=== PATIENT | female | born 1955 | race Caucasian/White ===

== ENCOUNTER → 2017-12-10 10:03 | Outpatient (CLI) | payer OTHER, SELFPAY ==
[2017-12-10 12:24] LABS: Absolute Lymphocyte Count 1.34 X10^3/ul (0.83-4.51); Absolute Neutrophil Count 3.1 X10^3/uL (2.0-7.7); Basophil# 0.03 X10^3/uL; Basophil% 0.6 % (0-1); Eosinophil# 0.12 X10^3/uL; Eosinophils% 2.4 % (0-5); Hematocrit 37.5 % (37-47); Lymphocyte # 1.34 X10^3/ul (4.0); Lymphocyte % 26.9 % (19-41); Mean Corpuscular Hgb 25.5 pg (27.0-32.0); Mean Corpuscular Volume 79.6 fL (81-99); Mean Platelet Vol. 9.6 fl (6.2-12.0); Monocyte# 0.44 X10^3/uL; Monocyte% 8.8 % (0-10); Neutrophil # 3.05 X10^3/uL (2.7-7.7); Neutrophil % 61.3 % (47-70); Platelet Count 342 K/mm3 (150-450); RBC Distribution Width CV 16.1 % (11.6-14.6); RBC Distribution Width SD 46.4 fl (35.1-43.9); Red Blood Count 4.71 M/mm3 (4.2-5.4)
[2017-12-10 12:38] LABS: POSITIVE COUNT NO; POSITIVE DIFFERENTIAL NO; POSITIVE MORPHOLOGY NO
[2017-12-10 12:44] LABS: AST(SGOT) 19 U/L (15-37); Alanine Aminotransfer ALT/SGPT 27 U/L (13-56); Albumin, Serum 3.6 g/dL (3.2-5.0); Alkaline Phosphatase 79 U/L (45-117); Anion Gap 8 (5-15); BUN 13 mg/dL (7-18); BUN/Creat Ratio 19.1 RATIO (10-20); Chloride 107 mmol/L (98-107); Cholesterol 165 mg/dL (200); Creatinine, Serum 0.68 mg/dL (0.55-1.02); EST Glomerular Filtration Rate 94 mL/min (>60); Est Glom Filt Rate - Afr Amer 113 mL/min (>60); Globulin 3.6 g/dL (2.2-4.2); Glucose 82 mg/dL (74-106); High Density Lipoprotein 57 mg/dL; Protein, Total 7.2 g/dL (6.4-8.2); Sodium Level 140 mmol/L (136-145); Thyroid Stim Hormone (TSH) 0.45 uIU/mL (0.358-3.74); Triglycerides 119 mg/dL; Very Low Density Lipoprotein 24 mg/dL (5-40)
[2017-12-11 09:45] LABS: Ferritin 4 ng/mL (8-252); Iron 31 ug/dL (50-170); Iron Binding Capacity,Total 422 ug/dL (250-450); PERCENT IRON SATURATION 7.3 % (15.0-55.0)
== END ==
PROVIDERS: Visit Provider Family Medicine
DX: K21.9 Gastro-esophageal reflux disease without esophagitis (principal); E03.9 Hypothyroidism, unspecified; R71.8 Other abnormality of red blood cells
CPT/HCPCS: 36415; 80053; 80061; 82728; 83540; 83550; 84439; 84443; 85025

== ENCOUNTER → 2018-02-11 11:10 | Outpatient (CLI) | payer OTHER, SELFPAY ==
--- NOTE | 2018-02-11 11:13 | BI_ITS ---
MAMMOGRAPHY - BILATERAL SCREENING 3-D LETA SYNTHESIS REASON FOR EXAM: Female, 63 years old. Bilateral Screening 3-D tomosynthesis PERTINENT HISTORY: Aunt with breast cancer.. TECHNIQUE: 2-D mammograms and 3-D Leta synthesis of the breast (s) were performed. CAD was performed. COMPARISON: None. FINDINGS: The breast composition is heterogeneously dense that can obscure small breast masses. Scattered benign calcifications are seen. No dense spiculated masses or suspicious microcalcifications are identified. No architectural distortion is identified. There is no skin thickening or retraction. There has been no significant change since the prior study. BI/SCREENING MAMM (CAD), BILAT IMPRESSION: No mammographic signs of malignancy. Routine yearly mammograms recommended. ASSESSMENT CATEGORY: BIRADS Category 2: Benign. A letter regarding these results will be sent to the patient by the facility within 30 days. FOLLOW UP RECOMMENDATION: Yearly follow up mammogram recommended. (A) Approximately 10% of breast cancers are not detected by mammography. A normal mammogram should not delay biopsy of a clinically suspicious abnormality. Electronically Signed: Ulises Schofield MD at 8:15 EDT , Service support ,
== END ==
PROVIDERS: Family Provider Family Medicine; PCP Family Medicine; Visit Provider Family Medicine
DX: Z12.31 Encounter for screening mammogram for malignant neoplasm of breast (principal)
CPT/HCPCS: 77062; 77063; 77067; G0279

== ENCOUNTER → 2018-03-29 11:30 | Outpatient (CLI) | payer OTHER, SELFPAY ==
[2018-03-29 14:27] LABS: Absolute Lymphocyte Count 1.41 X10^3/ul (0.83-4.51); Absolute Neutrophil Count 3.5 X10^3/uL (2.0-7.7); Basophil# 0.03 X10^3/uL; Basophil% 0.5 % (0-1); Eosinophil# 0.08 X10^3/uL; Eosinophils% 1.5 % (0-5); Hematocrit 42.4 % (37-47); Hemoglobin 13.6 g/dl (12.0-15.0); Lymphocyte # 1.41 X10^3/ul (4.0); Lymphocyte % 25.8 % (19-41); Mean Corp Hgb Conc 32.1 g/gl (32-36); Mean Corpuscular Hgb 26.6 pg (27.0-32.0); Mean Corpuscular Volume 82.8 fL (81-99); Mean Platelet Vol. 9.7 fl (6.2-12.0); Monocyte# 0.48 X10^3/uL; Monocyte% 8.8 % (0-10); Neutrophil # 3.46 X10^3/uL (2.7-7.7); Neutrophil % 63.2 % (47-70); Platelet Count 348 K/mm3 (150-450); RBC Distribution Width CV 16.7 % (11.6-14.6); RBC Distribution Width SD 50.7 fl (35.1-43.9); Red Blood Count 5.12 M/mm3 (4.2-5.4); White Blood Count 5.5 K/mm3 (4.4-11.0)
[2018-03-29 14:29] LABS: POSITIVE COUNT NO; POSITIVE DIFFERENTIAL NO; POSITIVE MORPHOLOGY NO
[2018-03-29 14:52] LABS: ALB/GLOB Ratio 1.1 RATIO (0.9-2.4); AST(SGOT) 23 U/L (15-37); Alanine Aminotransfer ALT/SGPT 35 U/L (13-56); Albumin, Serum 3.9 g/dL (3.2-5.0); Alkaline Phosphatase 80 U/L (45-117); Anion Gap 10 (5-15); BUN 11 mg/dL (7-18); Calcium,Total 9.2 mg/dL (8.5-10.1); Chloride 107 mmol/L (98-107); Creatinine, Serum 0.73 mg/dL (0.55-1.02); EST Glomerular Filtration Rate 86 mL/min (>60); Est Glom Filt Rate - Afr Amer 104 mL/min (>60); Ferritin 8 ng/mL (8-252); Globulin 3.6 g/dL (2.2-4.2); Glucose 92 mg/dL (74-106); Iron 77 ug/dL (50-170); Iron Binding Capacity,Total 405 ug/dL (250-450); Potassium 3.5 mmol/L (3.5-5.1); Protein, Total 7.5 g/dL (6.4-8.2); Sodium Level 143 mmol/L (136-145)
== END ==
PROVIDERS: Family Provider Family Medicine; PCP Family Medicine; Visit Provider Family Medicine
DX: E61.1 Iron deficiency (principal); E03.9 Hypothyroidism, unspecified
CPT/HCPCS: 36415; 80053; 82728; 83540; 83550; 84443; 85025

== ENCOUNTER → 2018-04-29 09:05 | Outpatient (CLI) | payer OTHER, SELFPAY ==
--- NOTE | 2018-04-29 09:23 | RAD_ITS ---
CLINICAL HISTORY: Female, 63 years old. Epigastric pain. Heartburn, left side. Thyroidectomy, benign mass. PROCEDURE: Air-contrast upper GI series. REASON FOR EXAM: Female, 63 years old. Epigastric pain. Heartburn, left side. Thyroidectomy, benign mass. TECHNIQUE: After the administration of gas producing crystals, water and barium solution orally, multiple images of the opacified gastrointestinal tract were obtained under fluoroscopic guidance. Additional right lateral cine imaging of the appearance and cervical esophagus was accomplished. FLUOROSCOPY TIME (if supplied): (165) seconds Dose: 68.7 mGy COMPARISON: None available. FINDINGS: After the administration of gas producing crystals, water, and barium solution orally, multiple images of the opacified gastrointestinal tract were obtained under fluoroscopic guidance. Examination of the esophagus shows normal motility but moderate dilatation is seen of the upper, mid and distal thoracic esophagus. Moderate narrowing of the GE junction seen with slightly hazy margins suggestive esophagitis in the appropriate clinical setting over a short length near the GE junction. No definite finding of hiatal hernia identified. Minimal gastroesophageal reflux noted during the study without provocation and slightly increased with provocation. Examination the stomach appears within normal without ulceration or mucosal thickening. Examination the duodenum shows mucosal thickening of the duodenal bulb. Incidental second portion duodenal diverticulum noted. Additional upright right lateral cine imaging pharynx and cervical esophagus shows no aspiration or laryngeal penetration with severe degenerative changes noted at C4-C5/C6/C7 including disc space narrowing and subchondral sclerosis and moderate anterior osteophytes. RAD/Upper GI Series Only IMPRESSION: Moderate narrowing GE junction noted with likely esophagitis. Clinical correlation recommended. Minimal GE reflux noted during the study without provocation and slightly increased with provocation. Duodenal fold mucosal thickening. Clinical correlation recommended. Severe degenerative C4-C5/C5-C6 as described with moderate anterior osteophytosis at each level. Electronically Signed: Ash Looney, at 14:47 EDT Tel , Service support ,
== END ==
PROVIDERS: Family Provider Family Medicine; PCP Family Medicine; Visit Provider Surgery
DX: R10.13 Epigastric pain (principal)
CPT/HCPCS: 74246

== ENCOUNTER 2018-05-17 09:26 | Day surgery (SDC) | payer OTHER, SELFPAY ==
[2018-05-17] VITALS (9 sets, daily range): BP systolic 80–119; BP diastolic 50–65; PULSE 67–85; RESP 16–18; TEMP 36.5–37.1; O2SAT 94–100; BMI 24.7
--- NOTE | 2018-05-17 | IMM_PTH ---
PATIENT: HUGO SAINI LOC: EN U#:[id number] AGE/SX: 63/F ROOM: RE05/17/[address]: Dr. Ash Franks MD : 1955 BED: DIS: 05/17/2018 SPEC #: [id number] RECD: 05/20/18 13:14 STATUS: GURJIT REQ #: [id number] SHORTY: 05/17/18 00:[address]: Ash Franks DEPT: IMMUNOHISTOCHEMISTRY RECD BY: Fely Plata ENTERED: 05/20/18 13:14 SP TYPE: IMMUNO OTHR DR: Dr. Girsih Vincent MD Tissues: B - Stomach, NOS Procedures: H Pylori (initial) PHYSICIAN & INSTITUTION [place] [address] SPECIMEN INFORMATION: Tissue Source: B - Antral biopsy Clinical Info: GERD Specimen Number: [id number] CPT code: 88894 METHODOLOGY: Deparaffinized sections of prefer/formalin-fixed tissue or PAP/DQ stained slides are incubated with monoclonal/polyclonal antibodies/oligonucleotide probes. Localization is made via biotin free immunoperoxidase method. Appropriate controls are performed and reacted as expected. Results on target cell population are indicated in the following table: RESULTS: ANTIBODY / CLONE RESULT Block B H Pylori (polyclonal) positive These tests were developed and their performance characteristics determined by [facility]. They may not have been cleared or approved by the U.S. Food and Drug Administration. The FDA has determined that such clearance or approval is not necessary. INTERPRETATION: B. Antral biopsy: Positive for Helicobacter pylori organisms. SJ:hugh 05/20/18
--- NOTE | 2018-05-17 | EGD_PTH ---
PATIENT: HUGO SAINI LOC: EN U#:[id number] AGE/SX: 63/F ROOM: RE05/17/[address]: Dr. Ash Franks MD : 1955 BED: DIS: 05/17/2018 SPEC #: [id number] RECD: 05/17/18 14:31 STATUS: GURJIT REThomas #: [id number] SHORTY: 05/17/18 00:[address]: Ash Franks DEPT: SURGICAL PATHOLOGY RECD BY: Emerson Hoffman ENTERED: 05/17/18 14:32 SP TYPE: EGD BIOPSY OTHR DR: Dr. Girish Vincent MD Tissues: A - Duodenum, NOS B - Gastric mucous membrane C - Esophageal mucous membrane Procedures: Special Stain Group II Surgery Specimen Level IV Alcian Blue/PAS (control) HEADER OPERATION: EGD - PH probe ([facility]) PRE-OP DIAGNOSIS: Gastroesophageal reflux disease TISSUE SUBMITTED: A - Duodenal biopsy, B - Antral biopsy, C - Distal esophageal biopsy MICROSCOPIC DIAGNOSIS A. Duodenal biopsy: A fragment of duodenal mucosa, no pathologic diagnosis. B. Antral biopsy: Chronic active gastritis. C. Distal esophageal biopsy: Fragments of gastroesophageal mucosa with mild acute and chronic inflammation. Intestinal metaplasia (goblet cell metaplasia) is not identified. SJ:rg 05/20/18 COMMENT B. The results of immunohistochemistry for Helicobacter pylori will be reported separately ([id number]). C. Alcian blue/PAS stain with matched control is used in the evaluation of the specimen. MICROSCOPIC DESCRIPTION Slides are reviewed. GROSS DESCRIPTION A - Received in fixative is one container labeled with the patient's name and designated duodenal biopsy. The specimen consists of one irregular fragment of light subramanian soft tissue that measures 0.4 x 0.3 x 0.1 cm. The specimen is totally submitted in one cassette. B - Received in fixative is one container labeled with the patient's name and designated antral biopsy. The specimen consists of one irregular fragment of light subramanian soft tissue that measures 0.3 x 0.3 x 0.1 cm. The specimen is totally submitted in one cassette. C - Received in fixative is one container labeled with the patient's name and designated distal esophageal biopsy. The specimen consists of multiple irregular fragments of light subramanian soft tissue that in aggregate measure 0.8 x 0.8 x 0.1 cm. The specimen is totally submitted in one cassette. / SJ:rg 05/17/18 TC:2 CPT: 00722 x3, 28581
--- NOTE | 2018-05-17 10:58 | OP.ENDO_ITS ---
Patient Name: Alayna Melendez Procedure Date: 05/17/2018 10:32 AM Date of : 1955 Age: 63 Procedure: Upper GI endoscopy Indications: Suspected gastro-esophageal reflux disease Providers: Ash Franks MD Referring MD: Ash Franks MD Medicines: See the Anesthesia note for documentation of the administered medications Complications: No immediate complications. Procedure: Pre-Anesthesia Assessment: - Prior to the procedure, a History and Physical was performed, and patient medications and allergies were reviewed. The patient's tolerance of previous anesthesia was also reviewed. The risks and benefits of the procedure and the sedation options and risks were discussed with the patient. All questions were answered, and informed consent was obtained. Prior Anticoagulants: The patient has taken no previous anticoagulant or antiplatelet agents. ASA Grade Assessment: II - A patient with mild systemic disease. After reviewing the risks and benefits, the patient was deemed in satisfactory condition to undergo the procedure. After obtaining informed consent, the endoscope was passed under direct vision. Throughout the procedure, the patient's blood pressure, pulse, and oxygen saturations were monitored continuously. The gastroscope was introduced through the mouth, and advanced to the second part of duodenum. The upper GI endoscopy was accomplished without difficulty. The patient tolerated the procedure well. Scope In: 10:42:45 AM Scope Out: 10:52:09 AM Total Procedure Duration Time 0 hours 9 minutes 24 seconds Findings: Esophagitis with no bleeding was found 42 cm from the incisors. A small hiatal hernia was present. Biopsies were taken with a cold forceps for histology. Diffuse mildly erythematous mucosa without bleeding was found in the gastric antrum. Biopsies were taken with a cold forceps for histology. The examined duodenum was normal. Biopsies were taken with a cold forceps for histology. The Z-line was irregular and was found 42 cm from the incisors. The GOLDBERG capsule with delivery system was introduced through the mouth and advanced into the esophagus, such that the GOLDBERG pH capsule was positioned 36 cm from the incisors, which was 6 cm proximal to the GE junction. The GOLDBERG pH capsule was then deployed and attached to the esophageal mucosa. The delivery system was then withdrawn. Endoscopy was utilized for probe placement and diagnostic evaluation. Impression: - Reflux esophagitis. Possible Wolf's - Small hiatal hernia. Biopsied. - Erythematous mucosa in the antrum. Biopsied. - Normal examined duodenum. Biopsied. - Z-line irregular, 42 cm from the incisors. - The GOLDBERG pH capsule was deployed. Recommendation: - Discharge patient to home. - Resume previous diet. - Continue present medications. - Return to my office in 1 week. Procedure Code(s): --- Professional --- 09330, Esophagogastroduodenoscopy, flexible, transoral; with biopsy, single or multiple Diagnosis Code(s): --- Professional --- K21.0, Gastro-esophageal reflux disease with esophagitis K44.9, Diaphragmatic hernia without obstruction or gangrene K31.89, Other diseases of stomach and duodenum K22.8, Other specified diseases of esophagus CPT copyright 2017 [employer] [place] [employer]. All rights reserved. The codes documented in this report are preliminary and upon internet marketing strategist review may be revised to meet current compliance requirements. Ash Franks MD 05/17/2018 10:58:08 AM This report has been signed electronically. Number of Addenda: 0 Note Initiated On: 05/17/2018 10:32 AM
== END 2018-05-17 12:23 | disposition home or self-care (01) ==
LOC: EN 09:27 → AC 09:28
PROVIDERS: Family Provider Family Medicine; PCP Family Medicine; Referring Provider Surgery; Visit Provider Surgery
PROC: (CPT 43239; principal; 2018-05-17 09:55)
DX: K29.50 Unspecified chronic gastritis without bleeding (principal); K21.0 Gastro-esophageal reflux disease with esophagitis; K44.9 Diaphragmatic hernia without obstruction or gangrene; B96.81 Helicobacter pylori [H. pylori] as the cause of diseases classified elsewhere; K58.9 Irritable bowel syndrome, unspecified; D64.9 Anemia, unspecified; E06.9 Thyroiditis, unspecified; Z90.49 Acquired absence of other specified parts of digestive tract; Z79.899 Other long term (current) drug therapy
CPT/HCPCS: 43239; 91035; 88305; 88313; 88342; J7120

== ENCOUNTER 2018-06-11 09:58 | Day surgery (SDC) | payer OTHER, SELFPAY ==
[2018-06-11 10:09] VITALS: BP 133/73; PULSE 80; RESP 16; TEMP 36.7; O2SAT 99
== END 2018-06-11 10:43 | disposition home or self-care (01) ==
LOC: EN 09:58
PROVIDERS: Family Provider Family Medicine; PCP Family Medicine; Referring Provider Surgery; Visit Provider Surgery
PROC: F00ZJWZ Instrumental Swallowing and Oral Function Assessment using Swallowing Equipment (ICD-10-PCS; CPT 43235; principal; 2018-06-11 09:55)
DX: K21.9 Gastro-esophageal reflux disease without esophagitis (principal)
CPT/HCPCS: 91010

== ENCOUNTER → 2018-07-12 11:20 | Outpatient (CLI) | payer OTHER, SELFPAY ==
[2018-05-17 09:52] VITALS: BMI 24.7
[2018-07-12 14:27] LABS: Absolute Lymphocyte Count 1.55 X10^3/ul (0.83-4.51); Absolute Neutrophil Count 2.5 X10^3/uL (2.0-7.7); Basophil# 0.04 X10^3/uL; Basophil% 0.9 % (0-1); Eosinophils% 2.1 % (0-5); Hematocrit 41.9 % (37-47); Hemoglobin 13.3 g/dl (12.0-15.0); Lymphocyte # 1.55 X10^3/ul (4.0); Mean Corp Hgb Conc 31.7 g/gl (32-36); Mean Platelet Vol. 9.5 fl (6.2-12.0); Monocyte# 0.46 X10^3/uL; Monocyte% 9.8 % (0-10); Neutrophil # 2.54 X10^3/uL (2.7-7.7); Neutrophil % 54.2 % (47-70); Platelet Count 348 K/mm3 (150-450); RBC Distribution Width CV 15.1 % (11.6-14.6); RBC Distribution Width SD 46.4 fl (35.1-43.9); Red Blood Count 4.93 M/mm3 (4.2-5.4); White Blood Count 4.7 K/mm3 (4.4-11.0)
[2018-07-12 14:28] LABS: POSITIVE COUNT NO; POSITIVE DIFFERENTIAL NO; POSITIVE MORPHOLOGY NO
[2018-07-12 14:36] LABS: ALB/GLOB Ratio 1.3 RATIO (0.9-2.4); AST(SGOT) 16 U/L (15-37); Alanine Aminotransfer ALT/SGPT 27 U/L (13-56); Albumin, Serum 3.9 g/dL (3.2-5.0); Alkaline Phosphatase 83 U/L (45-117); Anion Gap 8 (5-15); BUN 10 mg/dL (7-18); Calcium,Total 8.9 mg/dL (8.5-10.1); Chloride 105 mmol/L (98-107); Creatinine, Serum 0.62 mg/dL (0.55-1.02); EST Glomerular Filtration Rate 103 mL/min (>60); Est Glom Filt Rate - Afr Amer 125 mL/min (>60); Ferritin 7 ng/mL (8-252); Glucose 85 mg/dL (74-106); Iron 65 ug/dL (50-170); Iron Binding Capacity,Total 407 ug/dL (250-450); Protein, Total 6.9 g/dL (6.4-8.2); Sodium Level 140 mmol/L (136-145); T4 Free Direct 0.96 ng/dL (0.76-1.46); Thyroid Stim Hormone (TSH) 0.36 uIU/mL (0.358-3.74)
== END ==
PROVIDERS: Family Provider Family Medicine; PCP Family Medicine; Visit Provider Family Medicine
DX: E03.9 Hypothyroidism, unspecified (principal); R79.0 Abnormal level of blood mineral
CPT/HCPCS: 36415; 80053; 82728; 83540; 83550; 84439; 84443; 85025

== ENCOUNTER → 2019-08-26 13:07 | Outpatient (CLI) | payer OTHER, SELFPAY ==
[2018-05-17 09:52] VITALS: BMI 24.7
[2019-08-26 15:21] LABS: Absolute Lymphocyte Count 1.71 X10^3/uL (0.83-4.51); Absolute Neutrophil Count 3.2 X10^3/uL (2.0-7.7); Basophil# 0.06 X10^3/uL; Basophil% 1.1 % (0-1); Eosinophil# 0.12 X10^3/uL; Eosinophils% 2.1 % (0-5); Hematocrit 41.4 % (37-47); Hemoglobin 13.1 g/dL (12.0-15.0); Lymphocyte # 1.71 X10^3/ul (4.0); Lymphocyte % 30.5 % (19-41); Mean Corp Hgb Conc 31.6 g/dL (32-36); Mean Corpuscular Hgb 28.1 pg (27.0-32.0); Mean Corpuscular Volume 88.8 fL (81-99); Mean Platelet Vol. 9.4 fl (6.2-12.0); Monocyte# 0.46 X10^3/uL; Monocyte% 8.2 % (0-10); NRBC Flagged by Analyzer 0 % (0-5); Neutrophil # 3.24 X10^3/uL (2.7-7.7); Neutrophil % 57.7 % (47-70); Platelet Count 303 K/mm3 (150-450); RBC Distribution Width CV 14.1 % (11.6-14.6); RBC Distribution Width SD 46.2 fl (35.1-43.9); Red Blood Count 4.66 M/mm3 (4.2-5.4); White Blood Count 5.6 K/mm3 (4.4-11.0)
[2019-08-26 15:45] LABS: Ferritin 31 ng/mL (8-252); Iron 72 ug/dL (50-170); Iron Binding Capacity,Total 327 ug/dL (250-450); T4 Free Direct 0.86 ng/dL (0.76-1.46); Thyroid Stim Hormone (TSH) 0.43 uIU/mL (0.358-3.74)
== END ==
PROVIDERS: PCP Family Medicine; Referring Provider Family Medicine; Visit Provider Family Medicine
DX: R79.0 Abnormal level of blood mineral (principal); E03.9 Hypothyroidism, unspecified
CPT/HCPCS: 36415; 82728; 83540; 83550; 84439; 84443; 85025

== ENCOUNTER → 2020-10-21 09:19 | Outpatient (CLI) | payer OTHER, SELFPAY ==
[2018-05-17 09:52] VITALS: BMI 24.7
--- NOTE | 2020-10-21 09:22 | RAD_ITS ---
STUDY: X-RAY - LUMBAR SPINE REASON FOR EXAM: Female, 65 years old. Back pain, hip pain and knee pain TECHNIQUE: 3 view(s) of the lumbar spine were obtained. COMPARISON: None FINDINGS: There is straightening of the normal lumbar lordosis. There is a mild levoscoliosis of the lumbar spine. There is a normal alignment of the vertebrae. Normal vertebral bodies and endplates. There is multi-level degenerative disc disease with multi-level disc space narrowing. The soft tissue structures are unremarkable. RAD/Lumbar Spine 2 or 3 Views IMPRESSION: Degenerative changes of the spine, as detailed above. Levoscoliosis. Electronically Signed: Cristi Fernandez MD at 10:15 EDT , Service support ,
== END ==
PROVIDERS: PCP Family Medicine; Referring Provider Family Medicine; Visit Provider Family Medicine
DX: M51.36 Other intervertebral disc degeneration, lumbar region (principal); M48.061 Spinal stenosis, lumbar region without neurogenic claudication
CPT/HCPCS: 72100

== ENCOUNTER → 2021-03-25 08:05 | Outpatient (CLI) | payer OTHER, SELFPAY ==
[2021-03-25 10:22] LABS: Absolute Lymphocyte Count 1.66 X10^3/uL (0.83-4.51); Absolute Neutrophil Count 4.2 X10^3/uL (2.0-7.7); Basophil# 0.04 X10^3/uL; Basophil% 0.6 % (0-1); Eosinophil# 0.12 X10^3/uL; Eosinophils% 1.8 % (0-5); Hematocrit 44.6 % (37-47); Hemoglobin 14.5 g/dL (12.0-15.0); Lymphocyte # 1.66 X10^3/ul (0.83-4.51); Lymphocyte % 25.4 % (19-41); Mean Corp Hgb Conc 32.5 g/dL (32-36); Mean Corpuscular Hgb 28.8 pg (27.0-32.0); Mean Corpuscular Volume 88.7 fL (81-99); Mean Platelet Vol. 9.3 fl (6.2-12.0); Monocyte# 0.54 X10^3/uL; Monocyte% 8.3 % (0-10); NRBC Flagged by Analyzer 0 % (0-5); Neutrophil # 4.15 X10^3/uL (2.7-7.7); Neutrophil % 63.6 % (47-70); Platelet Count 325 K/mm3 (150-450); RBC Distribution Width CV 13.9 % (11.6-14.6); RBC Distribution Width SD 45.1 fl (35.1-43.9); Red Blood Count 5.03 M/mm3 (4.2-5.4); White Blood Count 6.5 K/mm3 (4.4-11.0)
[2021-03-25 11:03] LABS: AST(SGOT) 17 U/L (15-37); Alanine Aminotransfer ALT/SGPT 26 U/L (13-56); Albumin, Serum 3.8 g/dL (3.2-5.0); Alkaline Phosphatase 66 U/L (45-117); Anion Gap 6 (5-15); BUN 16 mg/dL (7-18); BUN/Creat Ratio 24.8 RATIO (10-20); Calcium,Total 9.1 mg/dL (8.5-10.1); Chloride 107 mmol/L (98-107); Cholesterol 177 mg/dL (200); Creatinine, Serum 0.64 mg/dL (0.55-1.02); EST Glomerular Filtration Rate 98 mL/min (>60); Est Glom Filt Rate - Afr Amer 119 mL/min (>60); Globulin 3.8 g/dL (2.2-4.2); Glucose 81 mg/dL (74-106); High Density Lipoprotein 61 mg/dL; Potassium 3.8 mmol/L (3.5-5.1); Protein, Total 7.6 g/dL (6.4-8.2); Sodium Level 139 mmol/L (136-145); T4 Free Direct 0.97 ng/dL (0.76-1.46); Triglycerides 92 mg/dL; Very Low Density Lipoprotein 18 mg/dL (5-40)
== END ==
PROVIDERS: PCP Family Medicine; Referring Provider Family Medicine; Visit Provider Family Medicine
DX: E03.9 Hypothyroidism, unspecified (principal)
CPT/HCPCS: 36415; 80053; 80061; 84439; 84443; 85025

== ENCOUNTER → 2021-05-04 | Outpatient (CLI) | payer OTHER, SELFPAY | END | disposition home or self-care (01) | LOC: LABSPEC 16:09 | PROVIDERS: PCP Family Medicine; Referring Provider Family Medicine; Visit Provider Family Medicine | DX: J01.90 Acute sinusitis, unspecified (principal) | CPT/HCPCS: 87635; U0005; U0003 ==

== ENCOUNTER → 2021-05-19 10:12 | Outpatient (CLI) | payer OTHER, SELFPAY ==
--- NOTE | 2021-05-19 10:20 | US_ITS ---
STUDY: THYROID ULTRASOUND REASON FOR EXAM: Female, 66 years old. Thyroid nodules. TECHNIQUE: Ultrasound evaluation of the thyroid was performed with real-time and static cochran-scale imaging. COMPARISON: None. FINDINGS: RIGHT LOBE: The right lobe of the thyroid gland is enlarged and measures 8.2 cm x 3.9 cm x 4.1 cm. There is a heterogeneous echotexture. There is a 4.5 cm x 3 cm x 2.5 cm solid hypoechoic nodule in the midpole of the right lobe. Within it, focal calcifications are seen. Biopsy recommended. LEFT LOBE: The left lobe of the thyroid gland measures 5 cm x 1.8 cm x 1.7 cm. There is a heterogeneous echotexture. Multiple hypoechoic solid nodules are seen. The largest measures 1.7 cm x 1.8 cm x 1.2 cm. This is located in the midpole of the left lobe. ISTHMUS: The isthmus measures 2 mm. The regional lymph nodes are normal. US/Thyroid IMPRESSION: Enlargement of the right lobe of the thyroid with a dominant mass within it measuring 4.5 cm x 3 cm x 2.5 cm. Biopsy is recommended. There are 2 dominant hypoechoic nodules in the left lobe the largest measuring 1.7 cm x 1.8 cm x 1.2 cm. Electronically Signed: Cristi Fernandez MD at 14:32 EDT , Service support ,
== END ==
PROVIDERS: PCP Family Medicine; Referring Provider Otolaryngology; Visit Provider Otolaryngology
DX: E04.2 Nontoxic multinodular goiter (principal)
CPT/HCPCS: 76536

== ENCOUNTER → 2022-04-13 | Outpatient (CLI) | payer OTHER, SELFPAY ==
[2022-04-13 15:05] LABS: Absolute Lymphocyte Count 2.44 X10^3/uL (0.83-4.51); Basophil# 0.06 X10^3/uL; Eosinophil# 0.16 X10^3/uL; Eosinophils% 2.6 % (0-5); Hematocrit 42.1 % (37-47); Hemoglobin 13.5 g/dL (12.0-15.0); Lymphocyte # 2.44 X10^3/ul (0.83-4.51); Lymphocyte % 39.2 % (19-41); Mean Corp Hgb Conc 32.1 g/dL (32-36); Mean Corpuscular Hgb 28.1 pg (27.0-32.0); Mean Corpuscular Volume 87.5 fL (81-99); Mean Platelet Vol. 9.3 fl (6.2-12.0); Monocyte# 0.58 X10^3/uL; Monocyte% 9.3 % (0-10); NRBC Flagged by Analyzer 0 % (0-5); Neutrophil # 2.95 X10^3/uL (2.7-7.7); Neutrophil % 47.4 % (47-70); Platelet Count 375 K/mm3 (150-450); RBC Distribution Width CV 13.7 % (11.6-14.6); RBC Distribution Width SD 44.4 fl (35.1-43.9); Red Blood Count 4.81 M/mm3 (4.2-5.4); White Blood Count 6.2 K/mm3 (4.4-11.0)
[2022-04-13 15:25] LABS: ALB/GLOB Ratio 0.9 RATIO (0.9-2.4); AST(SGOT) 18 U/L (15-37); Alanine Aminotransfer ALT/SGPT 36 U/L (13-56); Albumin, Serum 3.5 g/dL (3.2-5.0); Alkaline Phosphatase 97 U/L (45-117); Anion Gap 7 (5-15); BUN 12 mg/dL (7-18); BUN/Creat Ratio 17.2 RATIO (10-20); Chloride 106 mmol/L (98-107); EST Glomerular Filtration Rate 90 mL/min (>60); Est Glom Filt Rate - Afr Amer 109 mL/min (>60); Globulin 3.8 g/dL (2.2-4.2); Glucose 78 mg/dL (74-106); Potassium 3.9 mmol/L (3.5-5.1); Protein, Total 7.3 g/dL (6.4-8.2); Sodium Level 140 mmol/L (136-145); T4 Free Direct 0.98 ng/dL (0.76-1.46); Thyroid Stim Hormone (TSH) 0.55 uIU/mL (0.358-3.74)
== END | disposition home or self-care (01) ==
LOC: MFPLAB 11:52
PROVIDERS: PCP Family Medicine; Referring Provider Family Medicine; Visit Provider Family Medicine
DX: E03.9 Hypothyroidism, unspecified (principal)
CPT/HCPCS: 36415; 80053; 84439; 84443; 85025

== ENCOUNTER 2022-06-20 06:26 | Day surgery (SDC) | payer OTHER, SELFPAY ==
--- NOTE | 2022-06-20 | COLBX_PTH ---
PATIENT: HUGO SAINI LOC: EN U#:[id number] AGE/SX: 67/F ROOM: RE06/20/[address]: Dr. Ash Franks MD : 1955 BED: DIS: 06/20/2022 SPEC #: [id number] RECD: 06/20/22 12:13 STATUS: GURJIT CROWDER #: [id number] SHORTY: 06/20/22 00:[address]: Ash Franks DEPT: SURGICAL PATHOLOGY RECD BY: Emerson Hoffman ENTERED: 06/20/22 12:13 SP TYPE: COLON BX OTHR DR: Dr. Girish Vincent MD Tissues: COLON BIOPSY Procedures: Surgery Specimen Level IV HEADER OPERATION: Colonoscopy ? open access (MAC), polypectomy PRE-OP DIAGNOSIS: Screening TISSUE SUBMITTED: Hepatic flexure polyp MICROSCOPIC DIAGNOSIS Colonic polyp at hepatic flexure, biopsy: Fragments of tubular adenoma. AM:hugh 06/21/2022 MICROSCOPIC DESCRIPTION Slides are reviewed. GROSS DESCRIPTION Received in fixative is one container labeled with the patient's name and designated hepatic flexure polyp. The specimen consists of multiple irregular fragments of light subramanian soft tissue mixed with fecal material that in aggregate measure 2.5 x 0.4 x 0.1 cm. The specimen is totally submitted in one cassette. / SJ:hugh 06/20/2022 TC:5 CPT: 47054
--- NOTE | 2022-06-20 06:57 | PCM.HP.STD ---
[facility] General General Date of Service: 06/20/22 Chief Complaint: Screening for intestinal cancer [facility] Narrative HUGO SAINI, is a 67 F who presents for ostensibly a screening colonoscopy. She has not had a previous one for 20 years or greater. But she is complaining of constipation. She thinks there may have been an injury from a pessary that was placed a month ago. It had to be removed after several days because of acute change of bowel habits. She is now constipated. She always has diffuse abdominal tenderness. There is some report that she might of had a polyp removed 25 years ago. Apparently her previous experience was a poor experience. [facility] Medical History (Updated 06/14/22 @ 15:02 by Leslie Artis) Arthritis Back pain Bladder prolapse Chronic constipation Difficulty swallowing GERD (gastroesophageal reflux disease) GERD with esophagitis History of colon polyps History of hiatal hernia Leg cramps Non-smoker Post-menopausal Restless legs Thyroid disease Wears glasses Home Medications levothyroxine 50 mcg tablet (Synthroid) 50 mcg PO DAILY 04/19/18 [History Last Taken 05/17/18] omeprazole magnesium 20 mg tablet,delayed release (Prilosec OTC) 20 mg PO DAILY 06/14/22 [History Last Taken Unknown] Allergy/AdvReac Type Severity Reaction Status Date / Time No Known Allergies Allergy Verified 06/14/22 14:54 Family History Mother Arthritis Hypertension Father CVA (cerebral vascular accident) Sister Thyroid disorder Hypertension Surgical History (Updated 06/14/22 @ 15:02 by Leslie Artis) History of colonoscopy History of esophagogastroduodenoscopy (EGD) History of partial colectomy History of thyroidectomy History of tubal ligation Social History household members: spouse housing: house Smoking Status: Never smoker alcohol intake: never substance use type: does not use what type of physical activity do you participate in: walking do you feel safe at home: Yes ROS Constitutional Constitutional: Reports systems reviewed and no addt'l complaints, except as documented Cardiovascular Cardiovascular: Denies chest pain Respiratory/Chest Respiratory/Chest: Denies shortness of breath at rest Gastrointestinal Gastrointestinal: Reports abdominal pain and change in bowel habits; Denies hematochezia or melena Physical Exam Const alert, oriented x3 and no apparent distress General Appearance: cooperative and comfortable Eyes General Eye: normal appearance of both eyes Neck General: normal visual inspection Chest inspection of chest normal Resp Effort and Inspection: able to speak in complete sentences and symmetric chest movement Auscultation: clear to auscultation bilaterally Cardio regular rate and regular rhythm GI soft to palpation and non-distended Palpation: tender Extremity no calf tenderness Neuro oriented x3 Psych thought process normal Assessment & Plan Assessment/Plan (1) Encounter for screening for malignant neoplasm of colon: PLAN: The patient presents via open access for screening colonoscopy. She thinks there might have been an injury to her colon after pessary placement. She complains of acute change in bowel habits with constipation. No bright red blood per rectum or melena. She has had an opportunity to ask and have questions answered. We will proceed as noted. Ash Franks M.D., F.A.C.S.
[2022-06-20 07:08] VITALS: BP 168/93; PULSE 104; RESP 16; TEMP 37.2; O2SAT 100; BMI 25.1
[2022-06-20] MEDS: Lactated Ringers 1,000 ML 15 ML IV (07:12)
[2022-06-20 08:00] VITALS: BP 103/71; BP 168/93; PULSE 77; RESP 108; TEMP 36.6; O2SAT 96
--- NOTE | 2022-06-20 08:01 | OP.COLON_ITS ---
Patient Name: Alayna Melendez Procedure Date: 06/20/2022 7:26 AM Date of : 1955 Age: 67 Procedure: Colonoscopy Indications: Screening for colorectal malignant neoplasm Providers: Ash Franks MD Referring MD: Ash Franks MD Medicines: See the Anesthesia note for documentation of the administered medications Patient Profile: Last Colonoscopy: more than 10 years ago. Complications: No immediate complications. Procedure: Pre-Anesthesia Assessment: - Prior to the procedure, a History and Physical was performed, and patient medications and allergies were reviewed. The patient's tolerance of previous anesthesia was also reviewed. The risks and benefits of the procedure and the sedation options and risks were discussed with the patient. All questions were answered, and informed consent was obtained. Prior Anticoagulants: The patient has taken no previous anticoagulant or antiplatelet agents. ASA Grade Assessment: II - A patient with mild systemic disease. After reviewing the risks and benefits, the patient was deemed in satisfactory condition to undergo the procedure. After I obtained informed consent, the scope was passed under direct vision. Throughout the procedure, the patient's blood pressure, pulse, and oxygen saturations were monitored continuously. The pediatric colonoscope was introduced through the anus and advanced to the cecum, identified by appendiceal orifice and ileocecal valve. The colonoscopy was somewhat difficult due to a tortuous colon. Successful completion of the procedure was aided by applying abdominal pressure. The patient tolerated the procedure well. The quality of the bowel preparation was good. The ileocecal valve and the appendiceal orifice were photographed. Scope In: 7:35:41 AM Scope Withdrawal Time 0 hours 13 minutes 10 seconds Scope Out: 7:55:40 AM Total Procedure Duration Time 0 hours 19 minutes 59 seconds Findings: The digital rectal exam findings include non-thrombosed external hemorrhoids, non-thrombosed internal hemorrhoids and internal hemorrhoids that prolapse with straining, but spontaneously regress to the resting position (Grade II). A 11 mm polyp was found in the hepatic flexure. The polyp was sessile. The polyp was removed with a cold snare. Resection and retrieval were complete. To prevent bleeding post-intervention, one hemostatic clip was successfully placed. There was no bleeding at the end of the procedure. The exam was otherwise without abnormality. Impression: - Non-thrombosed external hemorrhoids, non-thrombosed internal hemorrhoids and internal hemorrhoids that prolapse with straining, but spontaneously regress to the resting position (Grade II) found on digital rectal exam. - One 11 mm polyp at the hepatic flexure, removed with a cold snare. Resected and retrieved. Clip was placed. - The examination was otherwise normal. Recommendation: - Discharge patient to home. - Resume previous diet. - Continue present medications. - Repeat colonoscopy in 5 years for surveillance based on pathology results. - Telephone my office for pathology results in 1 week. Procedure Code(s): --- Professional --- 38247, Colonoscopy, flexible; with removal of tumor(s), polyp(s), or other lesion(s) by snare technique Diagnosis Code(s): --- Professional --- Z12.11, Encounter for screening for malignant neoplasm of colon K64.1, Second degree hemorrhoids K64.4, Residual hemorrhoidal skin tags D12.3, Benign neoplasm of transverse colon (hepatic flexure or splenic flexure) CPT copyright 2017 [place] [employer]. All rights reserved. The codes documented in this report are preliminary and upon braille coder review may be revised to meet current compliance requirements. Ash Franks MD 06/20/2022 8:00:57 AM This report has been signed electronically. Number of Addenda: 0 Note Initiated On: 06/20/2022 7:26 AM
--- NOTE | 2022-06-20 08:02 | OP.CCLET_ITS ---
06/20/2022 Girish Vincent [address] [place] [address] Re : Colonoscopy procedure for Alayna Melendez Dear Dr. Vincent This procedure was performed on Monday, June 20, 2022. My impressions and recommendations are as follows: Impressions : - Non-thrombosed external hemorrhoids, non-thrombosed internal hemorrhoids and internal hemorrhoids that prolapse with straining, but spontaneously regress to the resting position (Grade II) found on digital rectal exam. - One 11 mm polyp at the hepatic flexure, removed with a cold snare. Resected and retrieved. Clip was placed. - The examination was otherwise normal. Recommendations : - Discharge patient to home. - Resume previous diet. - Continue present medications. - Repeat colonoscopy in 5 years for surveillance based on pathology results. - Telephone my office for pathology results in 1 week. My findings are described in the full procedure note, which is enclosed. If I can be of further assistance, please feel free to contact me at Doctor phone number(s): Work: . Sincerely, Ash Fransk MD 06/20/2022 8:00:57 AM This report has been signed electronically.
[2022-06-20 08:05] VITALS: BP 101/67; BP 168/93; PULSE 75; RESP 18; O2SAT 95
[2022-06-20 08:10] VITALS: BP 168/93; BP 95/82; PULSE 87; RESP 18; O2SAT 98
[2022-06-20 08:15] VITALS: BP 113/79; BP 168/93; PULSE 79; RESP 76; TEMP 36.3; O2SAT 98
[2022-06-20 08:29] VITALS: BP 168/93
== END 2022-06-20 08:36 | disposition home or self-care (01) ==
LOC: EN 06:33 → AC 06:33
PROVIDERS: PCP Family Medicine; Referring Provider Surgery; Visit Provider Surgery
PROC: 0DJD8ZZ Inspection of Lower Intestinal Tract, Via Natural or Artificial Opening Endoscopic (ICD-10-PCS; CPT 45378; principal; 2022-06-20 07:25)
DX: Z12.11 Encounter for screening for malignant neoplasm of colon (principal); K64.4 Residual hemorrhoidal skin tags; K64.1 Second degree hemorrhoids; D12.3 Benign neoplasm of transverse colon; K21.9 Gastro-esophageal reflux disease without esophagitis; E07.9 Disorder of thyroid, unspecified
CPT/HCPCS: 45385; 88305; J7120; J2405

== ENCOUNTER 2022-08-01 12:00 | Outpatient (RCR) | payer OTHER, MEDICARE, SELFPAY ==
--- NOTE | 2022-10-19 11:05 | HP.PTDCNRP_ITS ---
HUGO SAINI was seen in my office for initial evaluation on 07/20/22. The following Plan of Care was established for this patient: This patient was last seen in our office 08/01/22. Pertinent comments regarding their Physical therapy will appear below: This PT received a note from our front line leader on 08/29 stating the following: PATIENT CALLED THIS AM. THANK YOU SO MUCH FOR YOUR HELP. SHE'S DOING THE EX'S AND FEELING STRONGER. HOPES TO SEE YOU SOON. She has not returned to Physical Therapy and is appropriate to return to MD for further follow-up as needed. At this point I will be discontinuing this patient from physical therapy. I would be happy to see this patient again in the future if found appropriate by the physician. Thank you! Lizzie Peck, PT, Cert MDT
== END 2022-08-01 19:00 | disposition home or self-care (01) ==
LOC: PT 12:00
PROVIDERS: PCP Family Medicine; Referring Provider Urology; Visit Provider Urology
DX: R10.2 Pelvic and perineal pain (principal)
CPT/HCPCS: 97162; 97530

== ENCOUNTER 2022-10-07 03:11 | Emergency (ER) | payer OTHER, MEDICARE, SELFPAY ==
[2022-10-07 03:12] VITALS: BP 123/95; PULSE 74; RESP 17; TEMP 36.8; O2SAT 98; BMI 33.7
[2022-10-07 03:15] VITALS: BP 162/90; PULSE 90; PULSE 98; RESP 18; RESP 19; TEMP 36.7; TEMP 36.8; O2SAT 95; O2SAT 99
--- NOTE | 2022-10-07 04:00 | EDS_ITS ---
HPI HPI - GI History of Present Illness Chief Complaint: Nausea/Vomiting Detail of Chief Complaint: Reflux with epigastric abdominal pain. Informant: patient Abdominal Pain/Flank Pain Onset: Yesterday Context: Gradual Onset Timing: Continuous Quality: Burning Location: Epigastric Current Severity: Moderate Maximum Severity: Moderate Worsened by: Nothing Relieved by: Nothing Nausea/Vomiting/Emesis GI Symptom: Positive for Nausea and Vomiting Onset: Today and Yesterday Severity: Mild Diarrhea/Melena/Hematochezia GI Symptom: Negative for Diarrhea, Melena or Hematochezia Associated Symptoms Associated Symptoms: Negative for Dysuria, Frequency or Hematuria Narrative Narrative: 67-year-old female history of gastroesophageal reflux. Only prior abdominal surgery was tubal ligation with years later a partial colectomy. States that she occasionally gets pretty bad gastroesophageal reflux. Started getting on Sunday morning worse last night and started having nausea and vomiting around 9 PM. She says she took 3 Tums at 8 PM without any significant relief. She is on Prilosec normally. She does not drink alcohol nor smoke. She denies any fever. No melena. No hematemesis. No history of gallbladder disease. Prior similar symptoms: Yes Recent Illness/Hospitalization: No PFSH PFSH Medical History Arthritis Back pain Bladder prolapse Chronic constipation Difficulty swallowing GERD (gastroesophageal reflux disease) GERD with esophagitis History of colon polyps History of hiatal hernia Leg cramps Non-smoker Post-menopausal Restless legs Thyroid disease Wears glasses Home Medications levothyroxine 50 mcg tablet (Synthroid) 50 mcg PO DAILY 04/19/18 [History Last Taken 05/17/18] omeprazole magnesium 20 mg tablet,delayed release (Prilosec OTC) 20 mg PO DAILY 06/14/22 [History Last Taken Unknown] ondansetron 4 mg disintegrating tablet 4 mg PO Q6H PRN nausea and vomiting #10 tabs 10/07/22 [Rx Last Taken Unknown] Allergy/AdvReac Type Severity Reaction Status Date / Time No Known Allergies Allergy Verified 06/20/22 07:07 Family History Mother Arthritis Hypertension Father CVA (cerebral vascular accident) Sister Thyroid disorder Hypertension Surgical History History of colonoscopy History of esophagogastroduodenoscopy (EGD) History of partial colectomy History of thyroidectomy History of tubal ligation Social History household members: spouse housing: house Smoking Status: Never smoker alcohol intake: never substance use type: does not use what type of physical activity do you participate in: walking do you feel safe at home: Yes ROS ROS ED ROS Narrative Epigastric abdominal pain. Nausea and vomiting. Review of Systems ROS Unobtainable: Denies due to encephalopathy Constitutional Constitutional ED: Denies chills or fever(s) ENT ENT ED: Denies ear pain Cardiovascular Cardiovascular: Denies chest pain Respiratory/Chest Respiratory/Chest: Denies cough or dyspnea Gastrointestinal Gastrointestinal: Reports abdominal pain, nausea and vomiting; Denies constipation, diarrhea or melena Genitourinary Genitourinary ED: Denies dysuria or hematuria Musculoskeletal Musculoskeletal: Denies arthralgias Integumentary Denies abscess Neurologic Neurologic: Denies headache(s) Psychiatric Psychiatric: Denies anxiety Endocrine Endocrinology: Denies polydipsia Hematologic/Lymphatic Hematologic/Lymphatic: Denies easy bleeding Allergic/Immunologic Allergic/Immunologic ED: Denies mouth swelling or tongue swelling EXAM Physical Exam Narrative Exam Narrative: 67-year-old female vital signs are stable afebrile. She does not look septic or toxic. at bedside. H EENT exam is unremarkable. Mildly dry mucous membranes. Neck nontender. No JVD. Lungs clear to auscultation bilaterally. Heart regular rhythm rate about 90 no murmur. Chest wall nontender. Abdomen soft. Nondistended. Normal bowel sounds. No peritoneal signs. Tender in epigastric region. No pulsatile mass. Both the right upper quadrant right lower quadrant unremarkable. Soft. Moving all 4 extremities. Neurologically she is awake and alert with no focal motor deficits. Const Vital Signs: 10/07/22 03:12 10/07/22 03:15 10/07/22 03:15 Temperature 98.2 F 98.2 F 98.0 F Temperature Source Temporal Temporal Temporal Pulse Rate 74 98 90 Respiratory Rate 17 18 19 H Blood Pressure 123/95 H 162/90 H 162/90 H Blood Pressure Mean 104 114 114 Pulse Ox 98 95 99 Oxygen Delivery Method Room Air Room Air Room Air 10/07/22 05:00 10/07/22 05:00 10/07/22 05:31 Temperature 97.3 F L Temperature Source Temporal Pulse Rate 92 83 Respiratory Rate 17 15 Blood Pressure 129/86 H 129/86 H 118/76 Blood Pressure Mean 100 100 90 Pulse Ox 96 96 Oxygen Delivery Method Room Air Room Air Positive well nourished and well developed; Negative for obese, cachectic, contractures or unkempt General Appearance ED: well developed and NAD; Negative for unkempt, cachectic, contractures or pallor Nutritional Appearance: Negative for cachectic or obese HEENT Reports dry mucous membranes normocephalic and atraumatic; Negative for trauma or tenderness Mouth ED: Yes dry mucous membranes Mouth: dry mucous membranes Eyes PERRL and EOMs intact bilaterally General Eye ED: Negative for pale conjunctiva or scleral icterus Neck no lymphadenopathy, supple and no JVD General: Negative for tenderness Carotids: Negative for other Lymph Lymphatic: Negative for other Resp normal respiratory effort and clear to auscultation bilaterally Effort and Inspection: Negative for respiratory distress Auscultation: Negative for rales, rhonchi or wheezes Cardio regular rate, regular rhythm, S1 normal heart sound and no murmurs Rate: Negative for bradycardia or tachycardic Rhythm: Negative for abnormal rhythm GI non-distended and no masses; Negative for non-tender GI Narrative: Epigastric tenderness only. Nondistended. Soft. Normal bowel sounds. Inspection: Negative for abdominal distention Auscultation: normoactive bowel sounds Palpation: soft and tender; Negative for guarding, rigid, hepatomegaly, splenomegaly, hernia, mass, pulsatile mass or rebound tenderness present Back/Spine no CVA tenderness General Back: Negative for CVA tenderness Cervical Spine: Negative for cervical spine tenderness Thoracic Spine / Upper Back: Negative for thoracic spinal tenderness Lumbar Spine / Lower Back: Negative for lumbar spinal tenderness Coccyx: Negative for other Extremity full ROM General Extremety ED: Negative for edema or tenderness General Extremity: Negative for edema Neuro CN's II-XII intact bilaterally and moves all extremities Sensorium / Orientation: alert, oriented to person, oriented to place and oriented to time; Negative for orientation impaired, confused, lethargic or stuporous Motor Exam: strength 5/5 throughout; Negative for general weakness Psych mental status grossly normal and thought process normal Appearance: Negative for unkempt or other Attitude: No agitated Mood & Affect: Negative for depressed, anxious or tearful Skin no wounds General Skin Exam: Negative for jaundice or pallor Lesions: no lesions Rashes: no rashes Trauma: Negative for abrasion Nails: Negative for discolored MDM MDM MDM Narrative Medical decision making narrative: 67-year-old female with epigastric abdominal pain and a history of reflux. She states this is similar to an exacerbation of her reflux. Clinically this very well could be reflux, gastritis. Also possibly gastritis or gallbladder disease. However she has no right upper quadrant or any right lower quadrant tenderness. Screening labs will be obtained. She will be given a GI cocktail. Protonix IV. And Zofran for her nausea. Patient to be reassessed. She does not need any at this time. Repeat exam at 4:37 AM improving. Nausea resolved. Epigastric pain getting better. Patient doing well at 5:43 AM. Pain is improving. Nausea is resolved. Exam is benign. She will be discharged home. She has Prilosec at home. And Tums. She will be written for Zofran as needed for nausea. And given Mylicon here prior to being discharged. Follow-up with primary care physician if not improving or return if worse. Lab Data Attestation: I reviewed the patient's lab results. Lab results narrative: CBC shows a white count of 9. H&H of 15.7 and 48. Platelets of 362. Electrolytes show a gap of 10. A normal BUN of 14 and creatinine 0.7. Liver enzymes are unremarkable. Glucose 146. Lipase is 58. Labs are basically unremarkable. Labs: Laboratory Results - last 24 hr 10/07/22 10/07/22 03:25 03:25 WBC 9.0 RBC 5.54 H Hgb 15.7 H Hct 48.2 H MCV 87.0 MCH 28.3 MCHC 32.6 RDW Std Deviation 45.1 H RDW Coeff of Maddi 14.0 Plt Count 362 MPV 9.1 Immature Gran % (Auto) 0.600 Neut % (Auto) 80.7 H Lymph % (Auto) 14.3 L [place] % (Auto) 4.0 Eos % (Auto) 0.0 Baso % (Auto) 0.4 Absolute Neuts (auto) 7.3 Absolute Lymphs (auto) 1.28 Nucleated RBC % 0 Sodium 138 Potassium 4.0 Chloride 99 Carbon Dioxide 29.0 Anion Gap 10 BUN 14 Creatinine 0.76 Estim Creat Clear Calc 71.77 Est GFR (MDRD) Af Amer 98 Est GFR (MDRD) Non-Af 81 BUN/Creatinine Ratio 18.4 Glucose 146 H Calcium 9.6 Total Bilirubin 0.50 AST 21 ALT 32 Alkaline Phosphatase 80 Total Protein 7.9 Albumin 3.9 Globulin 4.0 Albumin/Globulin Ratio 1.0 Lipase 58 L Discharge Plan Triage Chief Complaint: Nausea/Vomiting ED Provider: Morro Casas Dx/Rx/DC Orders Clinical Impression: GERD with esophagitis, Gastritis Instructions: GERD Dc, ED Gastritis (Adult) Prescriptions: New ondansetron 4 mg tablet,disintegrating 4 mg PO Q6H PRN (Reason: nausea and vomiting) Qty: 10 0RF No Action levothyroxine [Synthroid] 50 mcg tablet 50 mcg PO DAILY omeprazole magnesium [Prilosec OTC] 20 mg Tablet,Delayed Release (Dr/Ec) 20 mg PO DAILY Primary Care Provider: Girish Vincent Referrals: Girish Vincent MD [Primary Care Provider] - 3-5 Days if not improving Activity Restrictions/Additional Instructions: This appears to be epigastric abdominal pain from either gastritis or reflux. You can use your Prilosec up to 40 mg twice a day. Also use Tums. Avoid fatty and greasy foods. Do not eat several hours before you go to sleep. For now avoid aspirin and nonsteroidal anti-inflammatories till this is getting better. Zofran as needed for nausea. Mylicon or Gas-X for stomach gas. Follow-up with your doctor if not improving. Disposition Disposition: Home, Self Care
[2022-10-07 04:05] LABS: Absolute Lymphocyte Count 1.28 X10^3/uL (0.83-4.51); Absolute Neutrophil Count 7.3 X10^3/uL (2.0-7.7); Basophil# 0.04 X10^3/uL; Basophil% 0.4 % (0-1); Hematocrit 48.2 % (37-47); Hemoglobin 15.7 g/dL (12.0-15.0); Lymphocyte # 1.28 X10^3/ul (0.83-4.51); Lymphocyte % 14.3 % (19-41); Mean Corp Hgb Conc 32.6 g/dL (32-36); Mean Corpuscular Hgb 28.3 pg (27.0-32.0); Mean Platelet Vol. 9.1 fl (6.2-12.0); Monocyte# 0.36 X10^3/uL; NRBC Flagged by Analyzer 0 % (0-5); Neutrophil # 7.25 X10^3/uL (2.7-7.7); Neutrophil % 80.7 % (47-70); Platelet Count 362 K/mm3 (150-450); RBC Distribution Width SD 45.1 fl (35.1-43.9); Red Blood Count 5.54 M/mm3 (4.2-5.4)
[2022-10-07] MEDS: Ondansetron 4 MG/2 ML Vial IV (04:17)
[2022-10-07] MEDS: Mag Hydrox/Al Hydrox/Simeth 30 ML UDC PO (04:24)
[2022-10-07 04:25] LABS: AST(SGOT) 21 U/L (15-37); Alanine Aminotransfer ALT/SGPT 32 U/L (13-56); Albumin, Serum 3.9 g/dL (3.2-5.0); Alkaline Phosphatase 80 U/L (45-117); Anion Gap 10 (5-15); BUN 14 mg/dL (7-18); BUN/Creat Ratio 18.4 RATIO (10-20); Calcium,Total 9.6 mg/dL (8.5-10.1); Chloride 99 mmol/L (98-107); Creatinine, Serum 0.76 mg/dL (0.55-1.02); EST Glomerular Filtration Rate 81 mL/min (>60); Est Glom Filt Rate - Afr Amer 98 mL/min (>60); Estimated Creatinine Clearance 71.77 ml/min; Glucose 146 mg/dL (74-106); Lipase 58 U/L (73-393); Protein, Total 7.9 g/dL (6.4-8.2); Sodium Level 138 mmol/L (136-145)
[2022-10-07] MEDS: 0.9% Normal Saline 1,000 ML 1000 ML IV (04:27)
[2022-10-07 05:00] VITALS: BP 129/86; PULSE 92; RESP 17; TEMP 36.3; O2SAT 96
[2022-10-07 05:31] VITALS: BP 118/76; PULSE 83; RESP 15; O2SAT 96
[2022-10-07 05:49] VITALS: BP 118/76; PULSE 83; RESP 15; O2SAT 97
== END 2022-10-07 06:05 | disposition home or self-care (01) ==
PROVIDERS: Emergency Provider Emergency Medicine; PCP Family Medicine; Visit Provider Emergency Medicine
DX: K21.00 Gastro-esophageal reflux disease with esophagitis, without bleeding (principal); K29.70 Gastritis, unspecified, without bleeding
CPT/HCPCS: 80053; 83690; 85025; 96365; 96375; 99283; J7030; A4216; J2405

== ENCOUNTER → 2022-10-16 | Outpatient (CLI) | payer OTHER, MEDICARE, SELFPAY ==
--- NOTE | 2022-10-16 09:07 | RAD_ITS ---
STUDY: X-RAY - ACUTE ABDOMINAL SERIES REASON FOR EXAM: Female, 67 years old. Abdominal pain. TECHNIQUE: Single view of the chest. Supine, and erect view(s) of the abdomen were obtained on 4 images. COMPARISON: None. FINDINGS: Mild hyperinflation. Normal size heart. Normal mediastinum and gabino. Normal visualized pulmonary arteries. Aortic tortuosity with calcification. Normal bowel gas pattern with air seen to the rectosigmoid. Moderate amount of feces in the colon. Phleboliths. Thoracolumbar rotatory levoscoliosis. RAD/Acute Abdomen Inc Chest IMPRESSION: Hyperinflation of the chest. No acute abnormality of the visualized chest, abdomen or pelvis. Electronically Signed: Alexander Camejo, at 11:00 EDT ,
== END | disposition home or self-care (01) ==
LOC: MTRAD 08:59
PROVIDERS: PCP Family Medicine; Referring Provider Family Medicine; Visit Provider Family Medicine
DX: R10.9 Unspecified abdominal pain (principal)
CPT/HCPCS: 74022

== ENCOUNTER 2023-03-15 10:30 | Outpatient (RCR) | payer OTHER, MEDICARE, SELFPAY ==
--- NOTE | 2023-02-05 14:13 | HP.PTEVAL ---
Patient's Visit Information Visit Information Visit Information: HUGO SAINI is a 67 year old F referred to Physical Therapy by Dr. Myriam Person MD with a diagnosis of PELVIC PAIN - MUSCULAR TRIGGER ON LEFT. Date of Evaluation: 01/30/23 Physical Therapist: Lizzie Peck, PT, Cert MDT Visit Plan Frequency: 1x/Week Duration: 2-4 Months Plan: FOCUS ON MANUAL PF THERAPY BEGINNING WITH LENGTHENING/RELAXATION/TRIGGER POINT RELEASE AND PROGRESSING TO STRENGTH AND ENDURANCE TRAINING NEEDED/TOLERATED. PELVIC FLOOR RELAXATION AND STRENGTHENING. URINARY RETENTION, URGE AND FREQUENCY EDUCATION. HEALTHY BLADDER HABIT EDUCATION. TRAINING IN COORDINATION OF PELVIC FLOOR MUSCULATURE WITH HIP AND CORE (TRANSVERSE ABDOMINUS) MUSCULATURE. POSTURE CORRECTION/STRENGTHENING. CORE STRENGTHENING. REBECCA LE ROM, STRETCHING AND STRENGTHENING. TRAINING IN ABDOMINAL CAVITY PRESSURE MGMT WITH ADL'S. Subjective Subjective: Work/Leisure: RETIRED Disability: NO Present symptoms: LEFT PELVIC PAIN INSIDE AND OUTSIDE. CONSTANT TOOTHACHE. PATIENT POINTS TO THE L GROIN AREA SHE REFERS TO THE PAIN. PATIENT DENIES LOW BACK AND HIP PAIN. DENIES PELVIC AND LE NUMBNESS AND TINGLING. PATIENT DESCRIBES TAKING STEPS TO TRY TO AVOID NEEDING TO GO TO THE BATHROOM WHILE OUT AND ABOUT SUCH FLUID RESTRICTION. PATIENT REPORTS THAT IF SHE HEARS WATER, TOUCHES WATER OR FEELS A BREEZE SHE GETS THE URGE TO GO AND USUALLY MAKES IT TO THE BATHROOM ON TIME. Present since: APR 2022. Pain Scale: WORST 6/10, LEAST 3/10 Currently: 5/10 Is it getting better, worse or staying the same: STAYING THE SAME Commenced as a result of: PATIENT REPORTS ORIGINALLY HER DOCTOR THOUGHT IT WAS FROM HER BLADDER DROPPING BUT SHE REPORTS DR. PERSON THINKS HER PAIN IS COMING FROM THE MUSCLES BEING TIGHT. Symptoms at onset: UNSURE Worse: IT IS JUST THERE. Better: NOTHING EXCEPT DISTRACTING HERSELF AND TRYING TO IGNORE IT. Disturbed sleep: Getting up to urinate about 2 times per night. Previous history/Previous treatment: PESSARY APR/MAY 2022. STATES IT WAS IN FROM SUN TO SUNDAY AND SHE COULDN'T GO TO THE BATHROOM. STATES SHE COULD NOT URINATE OR HAVE A BOWEL MVMT. COLON SURGERY OVER 20 YEARS AGO FROM DAMAGE CATERIZING TUBES. SECOND COLON SURGERY WAS OCTOBER 2022. PHYSICAL THERAPY (LIMITED DUE TO LACK OF INSURANCE COVERAGE PER PATIENT REPORT). PATIENT REPORTS SHE IS STILL DOING THE EX'S GIVEN IN PT LAST EPISODE OF CARE - PATIENT REPORTS THE EX'S HAVE NO EFFECT ON HER PAIN. Treatment this episode: REFERRED BACK TO PT. Gait: IT HURTS WHEN I WALK BUT I STILL WALK. How long can you delay the need to urinate: DEPENDS ON HOW MUCH FLUID INTAKE. Prolapse (Falling out feeling): FEELS AND SEE'S BLADDER BULGING Frequency of Urination: NOT REGULATED Ability to stop urine flow: NOT SURE SINCE RECENT COLON SURGERY. Ability to initiate urine stream: YES Dyspareunia: N/A Gait: NORMAL Bowel Incontinence: NO Accidents: NO Unexplained weight loss: NO Imagin CT SCANS AND A LOT OF BLOODWORK PER PATIENT REPORT. OTHER: PATIENT REPORTS SHE HAS NOT BEEN TOLD WHAT GRADE PROLAPSE SHE HAS. She also reports she has had 2 pregnancies without complications. PMH/Recent major surgery: Arthritis Back pain Bladder prolapse Chronic constipation - RESOLVED WITH RECENT SURGERY IN OCTOBER 2022 PER PATIENT REPORT. Difficulty swallowing GERD (gastroesophageal reflux disease) GERD with esophagitis History of colon polyps History of hiatal hernia Leg cramps Non-smoker Post-menopausal Restless legs Thyroid disease Wears glasses History of colonoscopy History of esophagogastroduodenoscopy (EGD) History of partial colectomy History of thyroidectomy History of tubal ligation OTHER: COLON SURGERY AGAIN October - STATES FLUIDS AND SOLIDS GO STRAIGHT THROUGH HER AND SHE IS NOT REGULATED YET. PATIENT REPORTS HER COLON KINKED AGAIN. PATIENT REPORTS SHE FEELS THE PROBLEM WITH HER COLON CAME FROM THE PESSARY. AUG 2022 R CATARACT REMOVAL AND L CATARACT REMOVAL IN DECEMBER 2022 THEREFORE WEARING SUNGLASSES. STATES SHE MIGHT NEED TO SEE A SPECIALIST FOR HER EYES. Objective Objective: Sitting/Standing Posture: FAIR. FH. RSH'S. REDUCED LUMBAR LORDOSIS BUT NO RELEVANT LATERAL SHIFT. Active Correction of posture: NE Other Observations: INDEP GAIT AND TRANSFERS. PATIENT EXPRESSING FRUSTRATION WITH QUESTIONS AND EXAM AT TIMES BUT CONSENTS TO CONTINUE Sensory deficit: REBECCA LE LIGHT TOUCH SENSATION GROSSLY INTACT AND SYMMETRICAL ROM deficit: TIGHT REBECCA HIP ADDUCTORS, HIP ER'S AND GASTROC SOLEUS COMPLEX'S. Motor deficit: REBECCA LE'S GROSSLY 5/5 WITH MMT'ING EXCEPT HIPS 4/5. Dural Signs: NEGATIVE REBECCA LE'S. Lumbar mvmt loss: flex - NIL ext - MIN R SG - MOD L SG - MOD PATIENT DENIES INCREASED PAIN WITH LUMBAR ROM TESTING ALL PLANES. Core strength: FAIR Palpation: NO ACUTE LUMBAR OR HIP TENDERNESS. FUNCTIONAL SCREEN: Incontinence Impact Questionnaire Score: 19 Urogenital Distress Inventory Score: 8 OTHER: PATIENT EXPRESSING GREAT FRUSTRATION WITH SOME OF THE MEDICAL CARE SHE HAS RECEIVED AND IS EXRESSING GREAT CONFUSION ABOUT WHY SHE IS HERE FOR MORE PT AND NOT GETTING HER BLADDER TACKED UP. SHE HAS A LOT OF QUESTIONS AND THIS PT SPENT MUCH TIME POSSIBLE GETTING PATIENTS HISTORY AND HEARING HER CONCERNS FOLLOWED BY EDUCATION IN BLADDER AND PELVIC FLOOR ANATOMY AND PHYSIOLOGY TO TRY TO ANSWER PATIENTS QUESTIONS. BY END OF SESSION PATIENT REPORTS FEELING MUCH MORE COMFORTABLE AND UNDERSTANDING MUCH BETTER WHY SHE IS HERE. THIS USED ALL THE TIME THAT WE HAD FOR TODAY BUT SHE GAVE CONSENT TO TRYING MANUAL PELVIC FLOOR THERAPY TO TRY TO HELP HER PELVIC PAIN AND RELEASE TRIGGER POINTS NEEDED STARTING NEXT VISIT. Goals Goal 1:: DECREASE C/O LOWER ABDOMINAL/GROIN/GENITAL AREA PAIN AND DISCOMFORT WITH ADL'S. Goal Time Frame: 8-12 Weeks Goal 2:: PATIENT WILL BE ABLE TO INITATE URINATION WITHOUT DELAY, PAIN OR DISCOMFORT. Goal Time Frame: 8-12 Weeks Goal 3:: PATIENT WILL DEMONSTRATE/COMMUNICATE 10 CONSISTENT AND CONSECUTIVE 10 SECOND PELVIC FLOOR MUSCLE CONTRACTIONS TO DEMONSTRATE IMPROVED PELVIC FLOOR ENDURANCE. Goal Time Frame: 8-12 Weeks Goal 4:: PATIENT WILL BE INDEP WITH A HEP/HOME INSTRUCTIONS FOR CONTINUED IMPROVEMENT ONCE FORMAL PHYSICAL THERAPY CONCLUDES. Goal Time Frame: 8-12 Weeks Anticipated Interventions Patient/Client Instruction: Educate patient on: Condition, Plan of Care and Risk Factors For the Purpose of:: To improve self management Therapeutic Exercise to Include: Strength training, Endurance training, Flexibilty training, Neuromotor development, Relaxation training and Biofeedback For the Purpose of:: To decrease pain, To increase ROM, To improve muscle performance and motor function, To increase tolerance to activity/condition/position and To improve ability of physical actions for home/community/work/leisure Manual Therapy Techniques to Include: Trigger point massage and Soft tissue mobilization For the Purpose of:: To decrease pain, To increase ROM, To improve nutrient delivery to tissue and To improve muscle performance and motor function Text: Thank you for the opportunity to evaluate your patient. For Medicare and Medicare HMO plans, please review the plan of care and approve it. It will need to be FAXED BACK to us at [phone] for Medicare purposes. For Medicare only, by signing this I certify the plan of care. Please let me know if there are questions or concerns regarding this plan of care. Physician Signature: Date:
--- NOTE | 2023-03-15 11:53 | HP.PTREVAL ---
Re-Evaluation Intro: Dr. Myriam Person MD, It has been my pleasure to treat HUGO SAINI over the last 4 visits for PELVIC PAIN - MUSCULAR TRIGGER ON LEFT. Please see the progress note below for an update on the physical therapy plan of care! Subjective Subjective: PATIENT REPORTS SHE ISN'T FEELING THAT MUSCLE ON THE LEFT OF PELVIC AREA MUCH WHEN SHE WALKS NOW. STATES SHE IS BACK UP TO ABOUT 4.5 MILES A DAY WALKING. FOLLOW UP PENDING WITH DR. PERSON NEXT WEEK. PATIENT REPORTS HER LOW BACK AND HIPS GET TIRED AND HURT WITH WALKING AND SOME OF THE EX'S BUT NOT THE STRETCHES. SHE STATES SHE IS VERY ACTIVE GOING UP AN DOWN STEPS, UP AND DOWN ladders, MOVING FURNITURE, ETC AND NOTHING IS GOING TO STOP HER. SHE REPORTS SHE PEES BETTER AT NIGHT WHEN SHE IS RELAXED. STATES SHE WILL NOT DRINK WHEN SHE LEAVES THE HOUSE. DENIES ANY EPISODES OF URINARY LEAKING. PATIENT DENIES ANY INCREASED PAIN AFTER LAST VISIT BUT SHE STATES SHE REALLY CAN'T SAY SHE SEES ANY IMPROVEMENT IN THE BULGING SHE FEELS SINCE STARTING THE MANUAL THERAPY OR THE EX'S. Objective Objective/Function: MUCH LESS TRIGGER POINTS IN PELVIC FLOOR TODAY AND RESPONDED TO THERAPY WELL. GOOD EX TECHNIQUE AND TOLERANCE TOO. L LE REMAINS TIGHTER THAN R. Plan Plan Plan: HOLD THERAPY PENDING RE-CHECK WITH DR. PERSON NEXT WEEK. PHYSICAL THERAPY FOCUS HAS BEEN ON PELVIC FLOOR MANUAL THERAPY AND EX FOR TRIGGER POINT RELEASE, RELAXATION AND STRETCHING. PATIENTS CURRENT CHIEF COMPLAINT IS BULGING IN THE VAGINAL AREA. Goals Goals Goal 1:: DECREASE C/O LOWER ABDOMINAL/GROIN/GENITAL AREA PAIN AND DISCOMFORT WITH ADL'S. Goal Time Frame: 8-12 Weeks Goal Progress: Progressing Goal 2:: PATIENT WILL BE ABLE TO INITATE URINATION WITHOUT DELAY, PAIN OR DISCOMFORT. Goal Time Frame: 8-12 Weeks Goal Progress: Progressing Goal 3:: PATIENT WILL DEMONSTRATE/COMMUNICATE 10 CONSISTENT AND CONSECUTIVE 10 SECOND PELVIC FLOOR MUSCLE CONTRACTIONS TO DEMONSTRATE IMPROVED PELVIC FLOOR ENDURANCE. Goal Time Frame: 8-12 Weeks Goal Progress: N/A Goal 4:: PATIENT WILL BE INDEP WITH A HEP/HOME INSTRUCTIONS FOR CONTINUED IMPROVEMENT ONCE FORMAL PHYSICAL THERAPY CONCLUDES. Goal Time Frame: 8-12 Weeks Goal Progress: Progressing Anticipated Interventions Anticipated Interventions Patient/Client Instruction: Educate patient on: Condition, Plan of Care and Risk Factors For the Purpose of:: To improve self management Therapeutic Exercise to Include: Strength training, Endurance training, Flexibilty training, Neuromotor development, Relaxation training and Biofeedback For the Purpose of:: To decrease pain, To increase ROM, To improve muscle performance and motor function, To increase tolerance to activity/condition/position and To improve ability of physical actions for home/community/work/leisure Manual Therapy Techniques to Include: Trigger point massage and Soft tissue mobilization For the Purpose of:: To decrease pain, To increase ROM, To improve nutrient delivery to tissue and To improve muscle performance and motor function Re-Evaluation Ending Re-evaluation ending: Please do not hesitate to contact me at [phone] by phone or if you have questions or concerns regarding this new plan of care! Sincerely, Lizzie Peck, PT, Cert MDT
--- NOTE | 2023-05-22 10:52 | HP.PT.NRP ---
Patient Information Patient Information: HUGO SAINI was seen in my office for initial evaluation on 01/30/23. The following Plan of Care was established for this patient: POC Established Initial Frequency: 1x/Week Initial Duration: 2-4 Months Anticipated Interventions Patient/Client Instruction: Educate patient on: Condition, Plan of Care and Risk Factors For the Purpose of:: To improve self management Therapeutic Exercise to Include: Strength training, Endurance training, Flexibilty training, Neuromotor development, Relaxation training and Biofeedback For the Purpose of:: To decrease pain, To increase ROM, To improve muscle performance and motor function, To increase tolerance to activity/condition/position and To improve ability of physical actions for home/community/work/leisure Manual Therapy Techniques to Include: Trigger point massage and Soft tissue mobilization For the Purpose of:: To decrease pain, To increase ROM, To improve nutrient delivery to tissue and To improve muscle performance and motor function Last Seen Last Seen: This patient was last seen in our office 03/15/23. Pertinent comments regarding their Physical therapy will appear below: This patient has not returned to Physical Therapy and is appropriate to return to MD for further follow-up as needed. At this point I will be discontinuing this patient from physical therapy. I would be happy to see this patient again in the future if found appropriate by the physician. Thank you! Lizzie Peck, PT, Cert MDT
== END 2023-03-15 19:00 | disposition home or self-care (01) ==
LOC: PT 10:30
PROVIDERS: PCP Family Medicine; Referring Provider Urology; Visit Provider Urology
DX: R10.2 Pelvic and perineal pain
CPT/HCPCS: 97140; 97162; 97530